=== PATIENT | female | born 1955 | race Caucasian/White ===

== ENCOUNTER 2017-09-02 10:22 | Emergency (ER) | payer OTHER ==
[~2017-09-02] VITALS: Ht 160 cm; Wt 97.5 kg
[~2017-09-02 10:22] MED LIST: AMLODIPINE BESY10 MG PO; AMOX TR-K CLV1 EAC1 PO; BENAZEPRIL HCL40 MG PO; CLONIDINE HCL0.1 MG PO; GLYBURIDE1.25 MG PO; GLYBURIDE5 MG PO; METFORMIN HCL850 MG PO; MORPHINE SULFAT30 M1 PO; ONDANSETRON HCL8 MG PO; PANTOPRAZOLE SO40 MG PO
--- OUTSIDE RECORDS SUMMARY | 2017-09-02 10:25 | XMS REPORT | Clinical Summary ---
Author Author [facility] Organization [facility] Address Unknown Phone Unavailable Care Team Providers Care [facility] Name Role Phone Stuart Cardoso PCP Allergies No Known Allergies Current Medications Prescription Sig. Disp. Refills Start End Date Status Date HUMULIN N 100 unit/mL Inject 10 Units under the 0 02/14/20 Active injection skin 2 (two) times a day. 17 HUMULIN R U-100 100 Sliding scale 0 02/14/20 Active unit/mL injection 17 lisinopril Take 10 mg by mouth 2 1 01/16/20 Active (PRINIVIL,ZESTRIL) 10 mg (two) times a day. Noon 17 tablet and night metoprolol tartrate Take 25 mg by mouth 2 0 01/18/20 Active (LOPRESSOR) 25 mg tablet (two) times a day. 17 tiZANidine (ZANAFLEX) 4 Take 4 mg by mouth every 0 02/07/20 Active MG tablet 6 (six) hours. 17 traMADol-acetaminophen Take 1 tablet by mouth 1 02/07/20 Active (ULTRACET) 37.5-325 mg every 6 (six) hours. 17 per tablet gabapentin (NEURONTIN) Take 300 mg by mouth 3 1 02/23/20 Active 300 mg capsule (three) times a day. 17 amLODIPine (NORVASC) 10 Take 10 mg by mouth every 1 01/16/20 Active mg tablet morning. 17 COLACE CLEAR 50 mg Take 50 mg by mouth 2 0 12/04/19 Active capsule (two) times a day. 17 LEVEMIR 100 unit/mL Take 25 Units by mouth 1 01/21/20 02/26/20 Discontin injection nightly. 17 17 ued aspirin 81 mg chewable Chew 1 tablet (81 mg 30 tablet 0 02/27/20 tablet total) daily for 30 days. 17 17 Active Problems Problem Noted Date Hypotension 02/26/2017 Hypoglycemia 02/25/2017 Encounters Date Type Specialty Care Team Description 02/25/2017 [facility] General Internal Medicine Foster Worley, Hypoglycemia (Primary - Encounter MD Dx); 02/26/2017 Eduard Ackerman MD Cerebrovascular accident (CVA), unspecified mechanism; Altered mental status, unspecified altered mental status type 02/25/2017 Procedure Pass General Internal Medicine 02/25/2017 Procedure Pass General Internal Medicine 02/25/2017 Procedure Pass General Internal Medicine after 09/01/2016 Family History Medical History Relation Name Comments Hypertension Father Diabetes Mother Heart disease Mother Hypertension Mother Kidney disease Sister Relation Name Status Comments Father Mother Sister Social History Tobacco Use Types Packs/Day Years Used Date Never Smoker Alcohol Use Drinks/Week oz/Week Comments No Sex Assigned at Date Recorded Not on file Last Filed Vital Signs Vital Sign Reading Time Taken Blood Pressure 105/53 02/26/2017 3:21 PM CDT Pulse 66 02/26/2017 3:21 PM CDT Temperature 36.3 C (97.3 F) 02/26/2017 3:21 PM CDT Respiratory Rate 14 02/26/2017 3:21 PM CDT Oxygen Saturation 97% 02/26/2017 3:21 PM CDT Inhaled Oxygen - - Concentration Weight - - Height 157.5 cm (5' 2") 02/25/2017 1:24 PM CDT Body Mass Index - - Plan of Treatment Health Maintenance Due Date Last Done Comments PAP SMEAR 10/13/1976 COLONOSCOPY 10/13/2005 MAMMOGRAM 10/13/2005 SHINGRIX VACCINE (#1) 10/13/2005 ZOSTER VACCINE 2015 INFLUENZA VACCINE 12/03/2017 Procedures Procedure Name Priority Date/Time Associated Diagnosis Comments ECHOCARDIOGRAM 2D Routine 02/26/2017 Results for this COMPLETE W MMODE SPECTRAL 8:00 AM CDT procedure are in the [facility] (63237) results section. after 09/01/2016 Results * POC glucose (02/26/2017 4:06 PM) Only the most recent of 6 results within the time period is included. Component Value Ref Range POC glucose 209 (H) 65 - 99 mg/dL Comment: Meter ID: [id number] Shoe Stainer: Estefany Norman Specimen Performing Laboratory [facility] [address] [place] [address] * Echocardiogram complete w contrast and 3D if needed (02/26/2017 8:00 AM) Component Value Ref Range AoV Area, Vmax 2.31 cm2 AoV Area, VTI 2.29 cm2 AoV Mean PG 6.82 mmHg AoV Peak PG 11.02 mmHg AoV Vmax 1.66 m/s AoV VTI 0.26 m IVS,d 1.11 0.6 - 1.2 cm LV,d 3.75 cm LV,s 2.36 cm LVOT Diam,S 1.73 cm LVOT Vmax 1.64 m/s LVOT VTI 0.26 m LVPWD,d 0.92 cm TR Vpeak 2.24 mm/s MV E A ratio 0.65 mmHg TR pk grad 20.15 mmHg E wave decelartion time 298.19 msec MV Peak A Chauncey 1.06 m/s MV valve area p 1/2 2.37 cm2 method MV Peak E Chauncey 0.69 m/s MV stenosis pressure 1/2 92.73 ms time AV LVOT peak gradient 10.79 mmHg MV mean gradient 1.90 mmHg LV SYS VOL 19.26 ml LV SCANLON VOL 59.98 ml LV SV Teich 2D 40.72 ml LVOT SI 36.98 ml/m2 MR peak grad 5.35 mmHg MV Vmax 1.16 m MV VTI Tips 0.28 m AoV Cusp sep 1.70 AoV Vmn 1.26 IVS s 2D 1.51 LA Ao Ratio Mmode 1.74 LVOT Vmn 1.06 Pt Size 157.48 Pt Wt 61.23 PV AT 89.97 msec LVOT mean grad 5.58 mmHg LVPW s PLAX 1.31 cm MV Decel slope 2.32 m/s2 Velocity Ratio (V1/V2) 0.99 m/s EF 67.89 % E/A ratio 0.65 LVOT area 2.35 cm2 RA pressure 5.00 mmHg RVSP 25.15 mmHg LA diam s 4.20 cm LA area s A4C 20.00 cm2 Aortic Root 2.40 VT End Scanlon Grad 2.66 VT End Diat Chauncey 0.82 D E excurs 0.50 E f slope 0.02 E prime lat 0.07 E melida sept 0.04 PV acc T slope 12.40 Specimen Performing Laboratory [facility] [address] [place] [address] Narrative The left ventricle chamber size is normal. Left Ventricular ejection fraction is 55 - 60%. Right ventricular size is normal. No pericardial effusion Spectral Doppler shows impaired relaxation pattern of left ventricular diastolic filling. * Troponin (02/25/2017 10:29 PM) Only the most recent of 3 results within the time period is included. Component Value Ref Range Troponin <0.300 0.000 - 0.300 ng/mL Comment: 0.30 - 1.49 ng/ml May indicate increased risk of acute coronary syndrome. >=1.5 ng/ml Consistent with acute myocardial infarction. The diagnostic value of a single normal or non-diagnostic result is questionable. Serial samples at 2-6 hour intervals are required to rule out acute myocardial injury. Specimen Performing Laboratory Plasma specimen [facility] [address] [place] [address] * MRA Neck Wo Contrast (02/25/2017 5:10 PM) Specimen Performing Laboratory [facility] [address] [place] [address] Narrative EXAMINATION:MRA NECK WO CONTRAST COMPARISON:None CLINICAL HISTORY:AMS TECHNIQUE: 3-D reconstructed images are submitted. Findings: The bifurcations are unremarkable without atherosclerotic changes. Using NASCET criteria, there is no significant stenosis in the distal internal carotid arteries. The internal carotid and vertebral arteries are otherwise unremarkable without evidence of dissection. IMPRESSION: Normal study. [facility]-[id number] Procedure Note Interface, Radiology Results Incoming - 02/25/2017 5:14 PM CDT EXAMINATION: MRA NECK WO CONTRAST COMPARISON: None CLINICAL HISTORY: AMS TECHNIQUE: 3-D reconstructed images are submitted. Findings: The bifurcations are unremarkable without atherosclerotic changes. Using NASCET criteria, there is no significant stenosis in the distal internal carotid arteries. The internal carotid and vertebral arteries are otherwise unremarkable without evidence of dissection. IMPRESSION: Normal study. [facility]-[id number] * Bedside glucose (02/25/2017 4:57 PM) Component Value Ref Range POC glucose 179 Specimen Performing Laboratory Blood * MRA Head Wo Contrast (02/25/2017 4:41 PM) Specimen Performing Laboratory [facility] [address] [place] [address] Narrative EXAMINATION: MRA HEAD WO CONTRAST CLINICAL HISTORY: CVA COMPARISON:None TECHNIQUE: [id number] MRA images of the [place] vessels were obtained with multiplanar and 3-D reconstructive algorithms. FINDINGS: The internal carotid arteries and bifurcations into the middle cerebral and anterior cerebral arteries are patent without significant stenosis.There is a patent anterior communicating artery. The vertebral arteries are patent. The basilar artery is patent. There is some irregularity and narrowing of the left P1 segment with there appears to be severe, greater than 70% stenosis with poor attenuation of the P2 and distal segments. Consider CT angiogram for further evaluation if clinically indicated. The right posterior shoulder artery is patent. There is no aneurysm or discrete vascular malformation identified. IMPRESSION: Findings suggest multifocal areas of severe stenosis of the proximal left posterior cerebral artery. This can be confirmed with CTA if indicated. [facility]-[id number] Procedure Note Interface, Radiology Results Incoming - 02/25/2017 4:50 PM CDT EXAMINATION: MRA HEAD WO CONTRAST CLINICAL HISTORY: CVA COMPARISON: None TECHNIQUE: [id number] MRA images of the [place] vessels were obtained with multiplanar and 3-D reconstructive algorithms. FINDINGS: The internal carotid arteries and bifurcations into the middle cerebral and anterior cerebral arteries are patent without significant stenosis. There is a patent anterior communicating artery. The vertebral arteries are patent. The basilar artery is patent. There is some irregularity and narrowing of the left P1 segment with there appears to be severe, greater than 70% stenosis with poor attenuation of the P2 and distal segments. Consider CT angiogram for further evaluation if clinically indicated. The right posterior shoulder artery is patent. There is no aneurysm or discrete vascular malformation identified. IMPRESSION: Findings suggest multifocal areas of severe stenosis of the proximal left posterior cerebral artery. This can be confirmed with CTA if indicated. [facility]-[id number] * MRI Brain Wo Contrast (02/25/2017 4:38 PM) Specimen Performing Laboratory [facility] [address] [place] [address] Narrative EXAMINATION:MRI BRAIN WO CONTRAST CLINICAL HISTORY:CVA COMPARISON: CT brain exam dated 02/25/2017. FINDINGS: Noncontrast MRI of the brain is interpreted. Diffusion imaging demonstrates no abnormal restricted diffusion to indicate recent infarct. There are moderate sized to large chronic insults in the bilateral cerebellar hemispheres. There is a small chronic wedge-shaped insult in the left occipital pole. Small chronic insult is noted within the right paramedian ventral ramón and in the right ventral medulla. Involutional changes of the brain are present. No extra-axial collection or mass effect is seen. No hemorrhage is identified. The major vascular flow-voids are preserved. IMPRESSION: No evidence of recent infarct or other acute intracranial abnormality. Chronic insults as described. [facility]-[id number] Procedure Note Interface, Radiology Results Incoming - 02/25/2017 4:47 PM CDT EXAMINATION: MRI BRAIN WO CONTRAST CLINICAL HISTORY: CVA COMPARISON: CT brain exam dated 02/25/2017. FINDINGS: Noncontrast MRI of the brain is interpreted. Diffusion imaging demonstrates no abnormal restricted diffusion to indicate recent infarct. There are moderate sized to large chronic insults in the bilateral cerebellar hemispheres. There is a small chronic wedge-shaped insult in the left occipital pole. Small chronic insult is noted within the right paramedian ventral ramón and in the right ventral medulla. Involutional changes of the brain are present. No extra-axial collection or mass effect is seen. No hemorrhage is identified. The major vascular flow-voids are preserved. IMPRESSION: No evidence of recent infarct or other acute intracranial abnormality. Chronic insults as described. [id number] * XR Chest 1 Vw Portable (02/25/2017 1:55 PM) Specimen Performing Laboratory [facility] [address] [place] [address] Narrative EXAMINATION:XR CHEST 1 VW PORTABLE CLINICAL HISTORY:Cough COMPARISON:None IMPRESSION: A portable AP radiograph of the chest is reviewed. The heart size is normal. There is no focal consolidation. No pleural effusion or pneumothorax are present. No acute osseous abnormality is present. [id number] Procedure Note Interface, Radiology Results Incoming - 02/25/2017 2:07 PM CDT EXAMINATION: XR CHEST 1 VW PORTABLE CLINICAL HISTORY: Cough COMPARISON: None IMPRESSION: A portable AP radiograph of the chest is reviewed. The heart size is normal. There is no focal consolidation. No pleural effusion or pneumothorax are present. No acute osseous abnormality is present. [id number] * Estimated GFR (02/25/2017 1:50 PM) Component Value Ref Range GFR Non Af Amer 50 (A) mL/min/1.73 m2 GFR Af Amer 61 mL/min/1.73 m2 Comment: Chronic kidney disease: <60 mL/min/1.73m2 Kidney failure: <15 mL/min/1.73m2 The estimated GFR is calculated from the IDMS-traceable Modification of Diet in Renal Disease Equation. The accuracy of the calculation is poor when the creatinine is normal. Calculated values >90 mL/min/1.73m2 are not reported. This equation has not been validated in children (<18 years), women, the elderly (>70 years), or ethnic groups other than Caucasians and Americans. Specimen Performing Laboratory Plasma specimen [facility] [address] [place] [address] * Partial thromboplastin time, activated (02/25/2017 1:50 PM) Component Value Ref Range PTT 30.6 23.0 - 36.0 sec Comment: PTT therapeutic range for unfractionated heparin is 61.0-112.0 seconds which corresponds to Anti-Xa 0.3-0.7 U/ml. Specimen Performing Laboratory Blood [facility] AND [facility] [address] [place] [address] * Prothrombin time with INR (02/25/2017 1:50 PM) Component Value Ref Range Prothrombin time 13.4 12.0 - 15.0 sec INR 1.0 Comment: The International Normalized Ratio (INR) is a therapeutic monitoring tool for patients who are stable on oral anticoagulant therapy. An INR of 2.0-3.0 is suggested for deep vein thrombosis/pulmonary embolism. Specimen Performing Laboratory Blood [facility] [address] [place] [address] * CBC with platelet and differential (02/25/2017 1:50 PM) Component Value Ref Range WBC 9.01 4.50 - 11.00 k/uL RBC 4.27 4.20 - 5.50 m/uL HGB 12.7 12.0 - 16.0 g/dL HCT 35.9 (L) 37.0 - 47.0 % MCV 84.1 82.0 - 100.0 fL MCH 29.7 27.0 - 34.0 pg MCHC 35.4 31.0 - 37.0 g/dL RDW - SD 39.3 37.0 - 55.0 fL MPV 10.9 8.8 - 13.2 fL Platelet count 278 150 - 400 k/uL Nucleated RBC 0.00 /100 WBC Neutrophils 57.3 39.0 - 69.0 % Lymphocytes 31.1 25.0 - 45.0 % Monocytes 8.7 0.0 - 10.0 % Eosinophils 2.0 0.0 - 5.0 % Basophils 0.7 0.0 - 1.0 % Immature granulocytes 0.2Comment: "Immature granulocytes" 0.0 - 1.0 % (promyelocytes, myelocytes, metamyelocytes) Specimen Performing Laboratory Blood [facility] [address] [place] [address] * Comprehensive metabolic panel (02/25/2017 1:50 PM) Component Value Ref Range Sodium 137 135 - 148 mEq/L Potassium 4.0 3.5 - 5.0 mEq/L Chloride 98 98 - 112 mEq/L CO2 27 24 - 31 mEq/L Anion gap 12 7 - 15 mEq/L Comment: Starting from August , anion gap calculation no longer incorporates potassium. Please note the change. BUN 30 (H) 8 - 23 mg/dL Creatinine 1.1 (H) 0.5 - 0.9 mg/dL Glucose 76 65 - 99 mg/dL Calcium 9.8 8.8 - 10.2 mg/dL Protein 6.7 6.3 - 8.3 g/dL Comment: 4.6-7.0 g/dL 1 week 4.4-7.6 g/dL 7 months-1year 5.1-7.3 g/dL 1-2 years 5.6-7.5 g/dL >3 years 6.0-8.0 g/dL 18-150 6.3-8.3 g/dL Albumin 3.9 3.5 - 5.0 g/dL A/G ratio 1.4 0.7 - 3.8 Alkaline phosphatase 43 35 - 104 U/L AST 16 10 - 35 U/L ALT 12 5 - 50 U/L Total bilirubin 0.5 0.0 - 1.2 mg/dL Specimen Performing Laboratory Plasma specimen [facility] [address] [place] [address] * CT Stroke Brain Wo Contrast (02/25/2017 1:45 PM) Specimen Performing Laboratory [facility] [address] [place] [address] Narrative EXAMINATION:CT STROKE BRAIN WO CONTRAST CLINICAL HISTORY:STROKE COMPARISON:None. TECHNIQUE: Noncontrast head CT performed using radiation dose reduction techniques.Technical factors are evaluated and adjusted to ensure appropriate moderation of exposure.Automated dose management technology is applied to adjust radiation exposure while achieving a diagnostic quality image. FINDINGS: No evidence of acute intracranial hemorrhage, mass, mass effect, midline shift, or acute infarct. Chronic infarct involving the left occipital lobe and bilateral cerebellar hemispheres.Possible remote lacunar infarct vs artifact involving the ramón. Mild prominence of the ventricular system which appears proportionate to the extra-axial space consistent with mild global cerebral volume loss. Few areas of nonspecific sulcal enlargement at the skull vertex. Basal cisterns are patent. Skull base and calvarium appear intact. Arteriosclerosis of the cavernous and paraclinoid internal carotid arteries. Orbits are normal in appearance. No significant sinus inflammatory changes. Mastoid air cells are clear. IMPRESSION: 1. No CT evidence of acute intracranial abnormality. 2. Left occipital and bilateral cerebellar infarcts which appear chronic. If there is persistent concern for acute ischemia, consider MRI with diffusion- weighted imaging. Findings were discussed with and acknowledged by WILLY Galvin at 2016 1:53 PM. [id number] Procedure Note Hm Interface, Radiology Results Incoming - 02/25/2017 1:58 PM CDT EXAMINATION: CT STROKE BRAIN WO CONTRAST CLINICAL HISTORY: STROKE COMPARISON: None. TECHNIQUE: Noncontrast head CT performed using radiation dose reduction techniques. Technical factors are evaluated and adjusted to ensure appropriate moderation of exposure. Automated dose management technology is applied to adjust radiation exposure while achieving a diagnostic quality image. FINDINGS: No evidence of acute intracranial hemorrhage, mass, mass effect, midline shift, or acute infarct. Chronic infarct involving the left occipital lobe and bilateral cerebellar hemispheres. Possible remote lacunar infarct vs artifact involving the ramón. Mild prominence of the ventricular system which appears proportionate to the extra-axial space consistent with mild global cerebral volume loss. Few areas of nonspecific sulcal enlargement at the skull vertex. Basal cisterns are patent. Skull base and calvarium appear intact. Arteriosclerosis of the cavernous and paraclinoid internal carotid arteries. Orbits are normal in appearance. No significant sinus inflammatory changes. Mastoid air cells are clear. IMPRESSION: 1. No CT evidence of acute intracranial abnormality. 2. Left occipital and bilateral cerebellar infarcts which appear chronic. If there is persistent concern for acute ischemia, consider MRI with diffusion- weighted imaging. Findings were discussed with and acknowledged by WILLY Galvin at 2016 1:53 PM. [id number] * ECG 12 lead (02/25/2017 1:26 PM) Component Value Ref Range Ventricular rate 72 Atrial rate 72 VT interval 140 QRSD interval 124 QT interval 452 QTC interval 494 P axis 1 60 QRS axis 1 27 T wave axis 58 EKG impression Sinus rhythm with marked sinus arrhythmia-Right bundle branch block-Abnormal ECG-- Specimen Performing Laboratory [facility] [address] [place] [address] after 09/01/2016 Insurance Payer Benefit Subscriber ID Type Phone Address Plan / Group MEDICAID MEDICAID xxxxxxxxx Medicaid
== END 2017-09-02 11:29 | disposition home or self-care (01) ==
LOC: ER 10:22
DX: L03.031 Cellulitis of right toe (principal); E11.40 Type 2 diabetes mellitus with diabetic neuropathy, unspecified; Z79.84 Long term (current) use of oral hypoglycemic drugs
CPT/HCPCS: 99282

== ENCOUNTER → 2018-01-26 | Emergency (ER) | payer OTHER ==
[~2018-01-26] VITALS: Ht 160 cm; Wt 63.5 kg
[~2018-01-26] MED LIST changes: +MORPHINE SULFATE INJ 4 MG/ML INJ IV ONE; +NITROFURANTOIN MACROCRYSTALS 100 MG CAP PO ONE; +ONDANSETRON HCL INJ 2 MG/ML VIAL IV STA; +SODIUM CHLORIDE 0.9% 1000ML 1,000 ML IV STA
[2018-01-26 12:10] LABS: BASOPHILS # (AUTO) 0.1 (0.0-0.1); BASOPHILS % 0.4 % (0.0-1.0); EOSINOPHILS # (AUTO) 0.1 (0.0-0.4); EOSINOPHILS % 0.9 % (0.0-6.0); HEMATOCRIT 37.9 % (34.2-44.1); LYMPHOCYTES # (AUTO) 1.9 (1.0-3.2); LYMPHOCYTES % 12.1 % (18.0-39.1); MEAN CORPUSCULAR HEMOGLOBIN 27.1 pg (28-32); MEAN CORPUSCULAR HGB CONC 31.7 g/dL (31-35); MEAN CORPUSCULAR VOLUME 85.7 fL (81-99); MONOCYTES # (AUTO) 0.8 (0.2-0.8); MONOCYTES % 4.9 % (4.4-11.3); NEUTROPHILS # (AUTO) 12.4 (2.1-6.9); NEUTROPHILS % 81.1 % (38.7-80.0); PLATELET COUNT 241 x10e3/uL (140-360); RED BLOOD COUNT 4.42 x10e6/uL (3.6-5.1); RED CELL DISTRIBUTION WIDTH 14.7 % (11.7-14.4)
--- NOTE | 2018-01-26 12:18 | Diagnostic Imaging Report ---
Exam: Sacrococcyx 2 views History: Tailbone pain, fall Comparison: None. Findings: Probable nondisplaced fracture at the sacrococcygeal junction. Upper sacrum unremarkable. Mild lower lumbar spondylosis. Sacroiliac joints intact. Impression: Probable nondisplaced fracture of the sacrococcygeal junction. Signed by: Dr. Javier Edouard M.D. on 01/26/2018 12:13 PM
[2018-01-26 12:24] LABS: ALANINE AMINOTRANSFERASE 58 IU/L (0-55); ALBUMIN 3.3 g/dL (3.5-5.0); ALBUMIN/GLOBULIN RATIO 0.9 (0.8-2.0); ALKALINE PHOSPHATASE 82 IU/L (40-150); ANION GAP 16.4 mmol/L (8-16); BLOOD UREA NITROGEN 16 mg/dL (7-26); BUN/CREATININE RATIO 19 (6-25); CALCIUM 9.4 mg/dL (8.4-10.2); CARBON DIOXIDE 27 mmol/L (22-29); CHLORIDE 103 mmol/L (98-107); CREATINE KINASE 195 IU/L (29-168); CREATININE, SERUM 0.86 mg/dL (0.57-1.11); EST GLOMERULAR FILTRATION RATE > 60 ML/MIN (60-); GLUCOSE 230 mg/dL (74-118); POTASSIUM 4.4 mmol/L (3.5-5.1); SODIUM 142 mmol/L (136-145)
[2018-01-26 12:39] LABS: BILIRUBIN,URINE NEGATIVE (NEGATIVE); CLARITY,URINE SL CLOUDY (CLEAR); COLOR,URINE YELLOW (YELLOW); KETONES,URINE NEGATIVE (NEGATIVE); LEUKOCYTE ESTERASE ,URINE TRACE (NEGATIVE); NITRITE,URINE POSITIVE (NEGATIVE); PROTEIN,URINE DIPSTICK NEGATIVE (NEGATIVE); URINE UROBILINOGEN 0.2 mg/dL (0.2 - 1)
--- NOTE | 2018-01-26 12:52 | Diagnostic Imaging Report ---
EXAMINATION: Head and cervical spine CT without contrast. HISTORY: Status post fall, head trauma, head and neck pain COMPARISON: Brain MRI of 05/27/2012. TECHNIQUE: Multidetector axial images were obtained without contrast from the foramen magnum to the vertex and through the cervical spine. The images were reconstructed using brain and bone algorithms. Thin section brain images were reformatted into coronal and sagittal planes. Dose modulation, iterative reconstruction, and/or weight based adjustment of the mA/kV was utilized to reduce the radiation dose to as low as reasonably achievable. HEAD CT FINDINGS: Skull: No lytic or blastic lesions. No fractures. Parenchyma: -Small chronic lacunar infarcts in the bilateral putamen, right caudate nucleus and right ramón, which were not seen on prior study. Chronic cortical infarct in the left posterior occipital lobe is unchanged. Chronic cortical infarct in the bilateral superior cerebellar hemispheres and bilateral almost symmetric mid cerebellar areas of extensive of extensive cortical encephalomalacia were not present on prior study. -No mass, hemorrhage or CT evidence of acute pericardial cortical vascular insult. Brain volume: Disproportionate cerebellar volume loss compared to the supratentorial cerebral volume Ventricles: No hydrocephalus or displacement. Arteries: No density suggestive of thrombus. Dural sinuses: No abnormal density. Extra-axial spaces: Small approximately 2 cm right superior parietal vertex arachnoid cyst and a smaller one in the left around the Rolandic fissure without significant mass effect. Foramen magnum: No mass, Chiari malformation, or basilar invagination. Sella: No obvious mass. Paranasal/mastoid sinuses: Imaged portions unremarkable. CERVICAL SPINE CT FINDINGS: Alignment:Normal alignment and lordosis. Soft tissues: Normal. Vertebrae: Normal height and density. No acute fracture, infection or neoplasm. Degenerative changes: No significant degenerative changes, no canal or foraminal stenosis. IMPRESSION: Head CT: 1. No acute postraumatic intracranial hemorrhage. 2. Multiple cerebellar chronic infarct and disproportionate atrophy as detailed above. 3. Unchanged chronic left occipital infarct when compared to MRI of 05/27/2012. 4. Multiple small chronic lacunar infarct are new since prior MRI. Cervical spine CT: 1. No acute fractures or dislocations. 2. Note is made that acute post traumatic spinal cord, vascular or ligamentous injury cannot adequately be assessed with CT. Signed by: Dr. Leonora Tran M.D. on 01/26/2018 12:47 PM
[2018-01-26 13:17] LABS: BACTERIA,URINE MANY /HPF; EPITHELIAL CELLS,URINE FEW /LPF
[2018-01-26 14:48] VITALS: BP 130/73
== END | disposition home or self-care (01) ==
LOC: ER 11:06
DX: S00.83XA Contusion of other part of head, initial encounter (principal); R42 Dizziness and giddiness; M53.3 Sacrococcygeal disorders, not elsewhere classified; W17.89XA Other fall from one level to another, initial encounter; Y92.008 Other place in unspecified non-institutional (private) residence as the place of occurrence of the external cause; N30.90 Cystitis, unspecified without hematuria
CPT/HCPCS: 36415; 70450; 72125; 72220; 80053; 81001; 82550; 82553; 84484; 85025; 93005; 99284; J2270; J2405; J7030